=== PATIENT | female | born 1985 | race Two or more races ===

== ENCOUNTER 2018-07-21 16:59 | Emergency (ER) | payer SELFPAY ==
[~2018-07-21] VITALS: Ht 167.6 cm; Wt 52.2 kg
[2018-07-21 16:59] VITALS: BP 106/75
--- NOTE | 2018-07-21 17:01 | NUR ---
ED Nurse Note: PT. AAOX4. AMBULATORY. BROUGHT IN BY AMBULANCE. PER EMS, A GOOD [facility] CALLED FOR THE PT. PT. WAS ASSESSED AND ASKED HOW SHE WAS. PT. STATED SHE FEELS SICK FOR A COUPLE OF DAYS BUT PT. IS NOTED TO BE SMILING. WAS ASKED IF THERE'S N/V/D BUT PT KEEPS ON STATING " I JUST FEEL SICK" DENIES ANY PAIN AT THIS TIME. NO S/S OF ACUTE DISTRESS NOTED AT THIS TIME.
[2018-07-21] MEDS ORDERED: Metoclopramide 10mg/2ml Inj IVP ONE (17:15)
[2018-07-21] MEDS ORDERED: DiphenhydrAMINE 50mg/ml Inj IVP ONE (17:15)
--- NOTE | 2018-07-21 17:17 | Emergency Room Report ---
History of Present Illness General Chief Complaint: General Complaint Source: Patient Present Illness HPI Patient presents with nausea and a strange feeling in her stomach. She denies any pain. She states his been a while since she's eaten anything. She thinks she might be . Her last period was 6 months ago. She doesn't believe she can get . She denies vomiting blood. She's moved her bowels without any difficulty. She denies dysuria, headache, rashes. The patient states that she does occasionally use methamphetamine. She denies alcohol. She does smoke cigarettes. She denies suicidal or homicidal ideation. She denies prior psychiatric illness. Allergies: Coded Allergies: No Known Allergies (Unverified , 07/21/18) Patient History Past Medical History: see triage record Social History: Reports: smoking, drug use; Denies: alcohol use Social History Narrative I am in a safe place Last Menstrual Period: unk Now: No Reviewed Nursing Documentation: PMH: Agreed; PSxH: Agreed Nursing Documentation-PMH Past Medical History: No Stated History Review of Systems All Other Systems: negative except mentioned in HPI Physical Exam Vital Signs Date Time Temp Pulse Resp B/P (MAP) Pulse Ox O2 Delivery O2 Flow Rate FiO2 07/21/18 16:39 98.8 115 20 104/79 98 Room Air Sp02 EP Interpretation: reviewed, normal General Appearance: no apparent distress, thin Head: normocephalic Eyes: bilateral eye normal inspection, bilateral eye PERRL ENT: moist mucus membranes Neck: supple Respiratory: lungs clear, normal breath sounds Cardiovascular #1: regular rate, rhythm Cardiovascular #2: 2+ radial (R) Gastrointestinal: normal inspection, normal bowel sounds, non tender, no mass, non-distended Genitourinary: no CVA tenderness Musculoskeletal: back normal, gait/station normal, normal range of motion Neurologic: alert, other - Halting speech, grossly normal, oriented - X2 Psychiatric: no suicidal/homicidal ideation, other - Occasionally has to process questions in order to answer Skin: normal inspection, warm/dry, other - Tattoos Medical Decision Making Diagnostic Impression: Primary Impression: UTI (urinary tract infection) Qualified Codes: N30.00 - Acute cystitis without hematuria Additional Impressions: Amphetamine abuse Nausea ER Course Patient presents with nausea and vomiting. Differential includes food poisoning , gastroenteritis, cyclic vomiting, dehydration, electrolyte imbalance, amongst others. She will be evaluated with labs. She will receive IV hydration, Reglan and Benadryl. The patient's behavior is somewhat bizarre. However she denies prior psychiatric illness and suicidal or homicidal ideation. She's not delusional at this time. Labs with minimal elevation of white count. Pyuria. Tox screen positive for amphetamines. Patient ate well here. She slept. When awakened for consideration for treatment for urinary tract infection the patient walked out of the emergency department after screaming and berating nursing staff. I was unable to advised the patient of the risks of leaving. Laboratory Tests Test 07/21/18 17:15 White Blood Count 11.1 K/UL (4.8-10.8) H Red Blood Count 4.91 M/UL (4.20-5.40) Hemoglobin 14.7 G/DL (12.0-16.0) Hematocrit 44.5 % (37.0-47.0) Mean Corpuscular Volume 91 FL (80-99) Mean Corpuscular Hemoglobin 30.0 PG (27.0-31.0) Mean Corpuscular Hemoglobin Concent 33.2 G/DL (32.0-36.0) Red Cell Distribution Width 11.6 % (11.6-14.8) Platelet Count 222 K/UL (150-450) Mean Platelet Volume 10.4 FL (6.5-10.1) H Neutrophils (%) (Auto) 61.7 % (45.0-75.0) Lymphocytes (%) (Auto) 32.3 % (20.0-45.0) Monocytes (%) (Auto) 4.7 % (1.0-10.0) Eosinophils (%) (Auto) 0.4 % (0.0-3.0) Basophils (%) (Auto) 0.9 % (0.0-2.0) Urine Color Pale yellow Urine Appearance Clear Urine pH 5 (4.5-8.0) Urine Specific Hood 1.015 (1.005-1.035) Urine Protein Negative (NEGATIVE) Urine Glucose (UA) Negative (NEGATIVE) Urine Ketones Negative (NEGATIVE) Urine Blood Negative (NEGATIVE) Urine Nitrite Negative (NEGATIVE) Urine Bilirubin Negative (NEGATIVE) Urine Urobilinogen Normal MG/DL (0.0-1.0) Urine Leukocyte Esterase 3+ (NEGATIVE) H Urine RBC 0-2 /HPF (0 - 2) Urine WBC 5-10 /HPF (0 - 2) H Urine Squamous Epithelial Cells Few /LPF (NONE/OCC) Urine Bacteria Few /HPF (NONE) Urine HCG, Qualitative Negative (NEGATIVE) Sodium Level 137 MMOL/L (136-145) Potassium Level 3.8 MMOL/L (3.5-5.1) Chloride Level 100 MMOL/L (98-107) Carbon Dioxide Level 23 MMOL/L (21-32) Anion Gap 14 mmol/L (5-15) Blood Urea Nitrogen 8 mg/dL (7-18) Creatinine 0.8 MG/DL (0.55-1.30) Estimate Glomerular Filtration Rate > 60 mL/min (>60) Glucose Level 74 MG/DL (74-106) Calcium Level 9.7 MG/DL (8.5-10.1) Total Bilirubin 0.3 MG/DL (0.2-1.0) Aspartate Amino Transferase (AST) 24 U/L (15-37) Alanine Aminotransferase (ALT) 19 U/L (12-78) Alkaline Phosphatase 61 U/L (46-116) Total Creatine Kinase 91 U/L (26-308) Total Protein 7.8 G/DL (6.4-8.2) Albumin 4.0 G/DL (3.4-5.0) Globulin 3.8 g/dL Albumin/Globulin Ratio 1.1 (1.0-2.7) Thyroid Stimulating Hormone (TSH) 1.522 uiU/mL (0.358-3.740) Salicylates Level 8.8 ug/mL (2.8-20) Urine Opiates Screen Negative (NEGATIVE) Acetaminophen Level < 2 MCG/ML (10-30) L Urine Barbiturates Screen Negative (NEGATIVE) Phencyclidine (PCP) Screen Negative (NEGATIVE) Urine Amphetamines Screen Positive (NEGATIVE) H Urine Benzodiazepines Screen Negative (NEGATIVE) Urine Cocaine Screen Negative (NEGATIVE) Urine Marijuana (THC) Screen Negative (NEGATIVE) Serum Alcohol < 3 mg/dL Last Vital Signs Date Time Temp Pulse Resp B/P (MAP) Pulse Ox O2 Delivery O2 Flow Rate FiO2 07/21/18 19:00 98.0 78 25 110/76 100 Room Air Status: improved Disposition: ELOPED Condition: Improved Scripts Nitrofurantoin Monohyd/M-Cryst* (MACROBID 100 MG*) 100 Mg Capsule 100 MG ORAL EVERY 12 HOURS, #14 CAP Prov: Ananda Benz MD 07/21/18 Ondansetron Odt* (ZOFRAN ODT*) 4 Mg Tab.rapdis 4 MG BC EVERY 8 HOURS, #6 TAB 0 Refills Prov: Ananda Benz MD 07/21/18 Ananda Benz MD Jul 21, 2018 17:17
--- NOTE | 2018-07-21 17:49 | NUR ---
ED Nurse Note: PT. WAS GIVEN 2 SANDWICHES. IS AWARE OF IT
[2018-07-21 18:03] LABS: BASOPHILS % (AUTO) 0.9 % (0.0-2.0); EOSINOPHILS % (AUTO) 0.4 % (0.0-3.0); HEMATOCRIT 44.5 % (37.0-47.0); HEMOGLOBIN 14.7 G/DL (12.0-16.0); LYMPHOCYTES % (AUTO) 32.3 % (20.0-45.0); MEAN CORPUSCULAR VOLUME 91 FL (80-99); MONOCYTES % (AUTO) 4.7 % (1.0-10.0); NEUTROPHILS % (AUTO) 61.7 % (45.0-75.0); PLATELET COUNT 222 K/UL (150-450); RED BLOOD COUNT 4.91 M/UL (4.20-5.40); RED CELL DISTRIBUTION WIDTH 11.6 % (11.6-14.8); WHITE BLOOD COUNT 11.1 K/UL (4.8-10.8)
[2018-07-21 18:04] LABS: APPEARANCE,URINE CLEAR; BILIRUBIN, URINE NEGATIVE (NEGATIVE); COLOR,URINE PALE YELLOW; GLUCOSE, URINE (UA) NEGATIVE (NEGATIVE); KETONES,URINE NEGATIVE (NEGATIVE); LEUKOCYTE ESTERASE ,URINE 3+ (NEGATIVE); NITRITE,URINE NEGATIVE (NEGATIVE); PH,URINE 5 (4.5-8.0); PROTEIN,URINE NEGATIVE (NEGATIVE); UROBILINOGEN,URINE NORMAL MG/DL (0.0-1.0)
[2018-07-21 18:22] LABS: ANION GAP 14 mmol/L (5-15); BLOOD UREA NITROGEN 8 mg/dL (7-18); CALCIUM 9.7 MG/DL (8.5-10.1); CARBON DIOXIDE 23 MMOL/L (21-32); CHLORIDE 100 MMOL/L (98-107); CREATININE 0.8 MG/DL (0.55-1.30); POTASSIUM 3.8 MMOL/L (3.5-5.1); SODIUM 137 MMOL/L (136-145)
[2018-07-21 18:35] LABS: ALANINE AMINOTRANSFERASE 19 U/L (12-78); ALBUMIN/GLOBULIN RATIO 1.1 (1.0-2.7); ALKALINE PHOSPHATASE 61 U/L (46-116); ASPARTATE AMINO TRANSFERASE 24 U/L (15-37); BILIRUBIN,TOTAL 0.3 MG/DL (0.2-1.0); CREATINE KINASE 91 U/L (26-308)
[2018-07-21] MEDS ORDERED: NITROFURANTOIN100 M2 ORAL (18:45)
[2018-07-21] MEDS ORDERED: ONDANSETRON ODT4 MG BC (18:45)
[2018-07-21 19:00] VITALS: BP 110/76
--- NOTE | 2018-07-21 19:28 | NUR ---
Homeless Discharge: Patient is being discharged from medical care. Awake, alert and oriented x3. After care instructions, including referral to community resources were given. Patient verbalized understanding of After care instructions; at this time patient does not request medications, equipment or placement. Patient signed patient consent in the medical record for patient destination upon discharge. All medical devices such as IV and ID band were removed. Patient ambulated out with all personal belongings with steady gait.
== END 2018-07-21 19:28 | disposition home or self-care (01) ==
LOC: EDBD 16:59 → EMR 18:19
DX: N39.0 Urinary tract infection, site not specified (principal); F15.10 Other stimulant abuse, uncomplicated; R11.0 Nausea
CPT/HCPCS: 36415; 80053; 80307; 81003; 81025; 82550; 84443; 85025; 96361; 96374; 96375; 99284; G0480; J1200; J2765; 80329